=== PATIENT | female | born 1995 | race Two or more races ===

== ENCOUNTER 2019-02-15 10:30 | Inpatient (IN) | payer OTHER ==
[~2019-02-15] VITALS: Ht 160 cm; Wt 2.3 kg
[2019-02-16] MEDS ORDERED: PRENATAL 19 TA1 EAC1 PO (16:16)
[2019-02-16] MEDS ORDERED: FOLIC ACID1 MG PO (16:16)
== END 2019-02-20 13:23 | disposition home or self-care (01) | DRG 785 ==
LOC: OB/GYN 10:30 → O/R 02-17 06:00 → OB/GYN 02-17 06:00
PROVIDERS: ADMIT Specialist
PROC: 0UL70ZZ Occlusion of Bilateral Fallopian Tubes, Open Approach (ICD-10-PCS; 2019-02-17)
PROC: 4A1HXCZ Monitoring of Products of Conception, Cardiac Rate, External Approach (ICD-10-PCS; 2019-02-17)
PROC: 10D00Z1 Extraction of Products of Conception, Low, Open Approach (ICD-10-PCS; principal; 2019-02-17 07:00)
DX: O82 Encounter for cesarean delivery without indication (principal); O76 Abnormality in fetal heart rate and rhythm complicating labor and delivery; Z3A.39 39 weeks gestation of pregnancy; Z37.0 Single live birth; Z30.2 Encounter for sterilization